=== PATIENT | female | born 1990 | race Caucasian/White ===

== ENCOUNTER → 2016-10-01 | Outpatient (CLI) | payer OTHER ==
[~2016-10-01] MED LIST: DESO5TAB PO; HYDR-5688 PO; IBUP-1050 PO; MULT-506 PO; PRENTAB26 PO; SUMA0.05 INJ; VNTHFA/IN INH; ZNTT/150 PO
--- NOTE | 2016-10-01 08:29 | DIAGNOSTIC IMAGING REPORT ---
GI SERIES W/AIR ROUTINE CLINICAL HISTORY: K21.9 Gastroesophageal reflux disease GERD, chest pain, r/o hiatal hernia. COMPARISON STUDY: None. FLUOROSCOPY TIME: 2.5 minutes. 19 images submitted. FINDINGS: The esophagus is normal in course, caliber, motility. No hiatus hernia. No gastroesophageal reflux. No gastric ulcerations. The duodenal bulb and duodenal C sweep are within normal limits. IMPRESSION: Normal upper GI series. Electronically signed by: Jimmy Alonzo M.D. 10/01/2016 8:27 AM Dictated Date/Time: 10/01/2016 8:13 AM
== END | disposition home or self-care (01) ==
LOC: C.RAD 07:45
PROVIDERS: ATTEND Surgery
DX: K21.9 Gastro-esophageal reflux disease without esophagitis (principal)

== ENCOUNTER → 2016-10-29 | Day surgery (SDC) | payer OTHER ==
[2016-10-14 12:59] VITALS: BMI 35.0
[~2016-10-29] VITALS: Ht 167.6 cm; Wt 99.5 kg
[~2016-10-29] MED LIST changes: +BUPIVACAINE/EPINEPHRINE 0.25% 1:200,000 30 ML VIAL ONE; +BUPIVACAINE/EPINEPHRINE 0.5% MPF 1:200,000 30 ML VIAL ONE; +CEFAZOLIN 2000 MG/60 ML D5W IV SCH; +DEXAMETHASONE SOD INJ 4 MG/ML VIAL ONE; +DiphenhydrAMINE HCL 50 MG/ML VIAL IV PRN; +FENTANYL CITRATE INJ 50 MCG/1 ML 2 ML VIAL IV PRN; +FENTANYL CITRATE INJ 50 MCG/1 ML 2 ML VIAL ONE; +GLYCOPYRROLATE INJ 0.2 MG/ML VIAL ONE; +HEPARIN SOD 5000 UNIT/0.5 ML CARP SQ SCH; +HYDROCODONE/ACETAMOPHEN 5/325MG TAB PO PRN; +KETOROLAC TROMETHAMINE 30 MG/ML VIAL IV. PRN; +KETOROLAC TROMETHAMINE 30 MG/ML VIAL ONE; +LACTATED RINGER'S 1000ML 1,000 ML IV PRN; +LACTATED RINGER'S 1000ML 1,000 ML IV SCH; +LIDOCAINE HCL 2% 2 ML VIAL (20MG/ML) ONE; +METOCLOPRAMIDE HCL INJ 5 MG/ML 2 ML VIAL IV PRN; +MIDAZOLAM HCL 1 MG/ML 2ML VIAL ONE; +NEOSTIGMINE METHYLSULFATE 5 MG/5 ML SYR ONE; +ONDANSETRON INJ 2 MG/ML 2 ML VIAL IV PRN; +ONDANSETRON INJ 2 MG/ML 2 ML VIAL ONE; -PRENTAB26 PO; +PROPOFOL IV EMULSION 10 MG/ML 20 ML VIAL IV ONE; +ROCURONIUM BROMIDE 10 MG/ML 5 ML VIAL ONE; +SCOPOLAMINE 1.5 MG TDSY TD ONE; +SODIUM CHLORIDE 0.9% 1000ML 1,000 ML IV SCH
[2016-10-29 07:15] VITALS: BP 133/72; PULSE 83; TEMP 37.2; O2SAT 97; Ht 167.6 cm; Wt 99.5 kg
[2016-10-29 07:45] LABS: HEMATOCRIT 35.6 % (37-47); MEAN CELL VOLUME 87.9 fL (80-100); MEAN CORPUSCULAR HEMOGLOBIN 30.4 pg (25-34); MEAN PLATELET VOLUME 9.5 fL (7.4-10.4); PLATELET COUNT 317 K/uL (130-400); RED BLOOD COUNT 4.05 M/uL (4.2-5.4); WHITE BLOOD COUNT 6.82 K/uL (4.8-10.8)
[2016-10-29 07:52] LABS: MEAN CORPUSCULAR HGB CONC 34.6 g/dl (32-36)
[2016-10-29 08:00] LABS: PREG INTERNAL NEGATIVE QC NEG CLEAR BACKGROUND; PREG INTERNAL POSITIVE QC POS CONTROL LINE
--- NOTE | 2016-10-29 08:06 | History and Physical ---
History & Physical Date Oct 29, 2016. Chief Complaint pt with epigastric pain and nausea, worse post prandial. HIDA + for biliary dyskinesia History of Present Illness The patient is a 26 year old female with complaints of Additional History Hepatic Disease: No Endocrine Disorder: No Kidney Disease: No Hypertension: Yes (during ) Heart Disease: No Bleeding Tendencies: No Infectious Diseases: No Allergies Coded Allergies: Codeine (Verified Allergy, Unknown, DELIRIUM, 10/29/16) Gluten (Verified Allergy, Unknown, GI SYMPTOMS-GLUTEN INTOLERANT, 10/29/16) Nickel (Unverified Allergy, Unknown, RASH WITH CONTACT WITH NICKEL, 10/29/16 ) Home Medications Scheduled Desogestrel-Ethinyl Estradiol (Pimtrea 0.15-0.02/0.01 mg (13/12)), 1 TAB PO DAILY Ibuprofen (Advil), 600 MG PO PRN Multivitamin (Multivitamin), 1 TAB PO QPM Ranitidine (Zantac), 150 MG PO PRN Sumatriptan Succinate (Zembrace Symtouch), 3 MG INJ PRN Scheduled PRN Albuterol Hfa (Ventolin Hfa), 1-2 PUFFS INH Q4H PRN for RN Physical Examination Skin: warm/dry Eyes: normal inspection, EOMI ENT: normal ENT inspection Head: normocephalic Neck: supple, no adenopathy Respiratory/Chest: no respiratory distress Cardiovascular: regular rate, rhythm Abdomen / GI: normal bowel sounds, non tender Extremities: normal inspection Neurologic/Psych: alert, oriented x 3 Plan of Treatment biliary dyskinesia discussed options/risks. questions answered. ok to proceed with rach obrien
--- NOTE | 2016-10-29 09:15 | [facility] Operative Report ---
Operative Report Operative Date Oct 29, 2016. Pre-Operative Diagnosis biliary dyskinesia Post-Operative Diagnosis same Procedure(s) Performed lap camille Steel Rod Buster Surgeon(s) sowcik,pac Findings normal appearing anatomy Specimens gallbladder Anesthesia get Complication(s) None Disposition Recovery Room / PACU I attest to the content of the Intraoperative Record and any orders documented therein. Any exceptions are noted below.
--- NOTE | 2016-10-29 09:20 | Discharge Instructions ---
Discharge Instructions Date of Service Oct 29, 2016. Admission Reason for Admission: Biliary Dyskinesia Discharge Discharge Diagnosis / Problem: biliary dyskinesia Discharge Goals Goal(s): Decrease discomfort, Prevent Disease Progression Activity Recommendations Activity Limitations: as noted below Lifting Limitations: no more than 10 pounds Exercise/Sports Limitations: until after follow-up appointment May Resume Sexual Activity: after follow-up appointment Shower/Bathe: tomorrow . Instructions / Follow-Up Instructions / Follow-Up f/u dr. vargas in 1-2 weeks. call [phone] if any problems or questions. Current Hospital Diet Patient's current hospital diet: Discharge Diet Recommended Diet: Regular Diet Procedures Procedures Performed: lap camille Pending Studies Studies pending at discharge: yes List of pending studies: path report Medical Emergencies . Who to Call and When: Medical Emergencies: If at any time you feel your situation is an emergency, please call [phone] immediately. . Non-Emergent Contact Non-Emergency issues call your: Primary Care Provider, Surgeon Call Non-Emergent contact if: temperature is above 101, wound has increased drainage, wound has increased redness, wound has increased pain . "Provider Documentation" section prepared by Brian Vargas. VTE Core Measure Inpt VTE Proph given/why not?: SCD's
--- NOTE | 2016-10-29 10:10 | Anesthesiology Progress Note ---
Anesthesia Post Op Note Date & Time Oct 29, 2016 at 10:07 Vital Signs Pain Intensity: 0 Vital Signs Past 12 Hours Date Time Temp Pulse Resp B/P Pulse Ox O2 Delivery O2 Flow Rate FiO2 10/29/16 09:50 36.8 71 16 121/78 99 Nasal Cannula 3 10/29/16 09:40 56 18 120/76 99 Nasal Cannula 3 10/29/16 09:30 60 18 127/79 99 Nasal Cannula 3 10/29/16 09:20 79 16 127/89 99 Mask 10 10/29/16 09:16 37.0 92 16 137/88 99 Mask 10 10/29/16 07:15 37.2 83 16 133/72 97 Room Air Notes Mental Status: alert / awake / arousable, participated in evaluation Pt Amnestic to Procedure: Yes Nausea / Vomiting: adequately controlled Pain: adequately controlled Airway Patency, RR, SpO2: stable & adequate BP & HR: stable & adequate Hydration State: stable & adequate Anesthetic Complications: no major complications apparent Pt had some nausea in PACU which is now resolved. I ordered a scopolamine patch to be placed on her to try to prevent the nausea from recurring when she's at home.
[2016-10-29 10:14] VITALS: BP 111/57; PULSE 62; TEMP 36.4; O2SAT 96
[2016-10-29 10:32] VITALS: BP 84/50; PULSE 65; O2SAT 95
[2016-10-29 11:00] VITALS: BP 99/61; PULSE 64; TEMP 36.1; O2SAT 96
[2016-10-29 12:03] VITALS: BP 107/69; PULSE 88; TEMP 36.7; O2SAT 98
[2016-10-29 12:51] VITALS: BP 98/60; PULSE 77; TEMP 36.7; O2SAT 97
--- NOTE | 2016-10-30 03:51 | OPERATIVE REPORT ---
DATE OF OPERATION: 10/29/2016 PREOPERATIVE DIAGNOSIS: Biliary dyskinesia. POSTOPERATIVE DIAGNOSIS: Same. PROCEDURE: Laparoscopic cholecystectomy. SURGEON: Dr. Vargas. DOSIMETRIST: Michelle Harris PA-C ESTIMATED BLOOD LOSS: 10 mL. COMPLICATIONS: No immediate. ANESTHESIA: General. CONDITION: The patient tolerated the procedure well. OPERATIVE NOTE: After informed consent was obtained, the patient was taken to the operating suite and placed in the supine position. After successful intubation, the abdomen was sterilely prepped and draped in usual fashion. A periumbilical incision made with an 11 blade scalpel and carried down through the soft tissue using electrocautery. The anterior rectus fascia was opened using electrocautery and two #0 Vicryl stay sutures were placed. Peritoneum was elevated with hemostats and incised under direct vision. Finger sweep was performed. A 12 mm Annamaria trocar was placed. The abdomen was insufflated to 18 mmHg. Laparoscope was inserted and the abdomen examined 360 degrees. A subxiphoid 5-mm port and 2 right upper quadrant 5 mm ports were placed under direct vision. The patient was placed in reverse Trendelenburg position and slightly airplaned to the left. The gallbladder was grasped and elevated superiorly and laterally. [place] dissector was used to take down adhesions around the neck of the gallbladder. We did skeletonize the cystic duct without any difficulty, clipped it twice proximally and once distally and transected it using laparoscopic scissors. In similar fashion, I was able to identify the cystic artery. It was skeletonized, clipped and divided as well. Electrocautery was used to remove the gallbladder from the gallbladder fossa. A small hole was made in it during this process, releasing a small amount of bile which was immediately suctioned and irrigated. Once we removed the gallbladder in its entirety, it was placed into an EndoCatch bag. Any small bleeding points in the gallbladder fossa were controlled using electrocautery. We thoroughly irrigated the right upper quadrant. We looked in the pelvis and left upper quadrant and all of the bile had been cleaned out. No other gross abnormalities were identified. The gallbladder was removed from the camera port site and all the trocars were subsequently removed. The abdomen was desufflated. The fascia of the camera port was closed using 0 Vicryl in a [id number] fashion. All the wounds were irrigated and closed using 4-0 Monocryl. Marcaine was injected around them for postoperative analgesia and skin glue used as a dressing. The patient was awakened, extubated, and transferred to recovery in stable condition. I attest to the content of the Intraoperative Record and any orders documented therein. Any exceptio ns are noted below.
== END | disposition home or self-care (01) ==
LOC: C.ACU 06:53
PROVIDERS: ATTEND Surgery
DX: K82.8 Other specified diseases of gallbladder (principal); R10.13 Epigastric pain; R11.0 Nausea

== ENCOUNTER → 2017-02-12 | Outpatient (CLI) | payer OTHER ==
[~2017-02-12] MED LIST changes: -BUPIVACAINE/EPINEPHRINE 0.25% 1:200,000 30 ML VIAL ONE; -BUPIVACAINE/EPINEPHRINE 0.5% MPF 1:200,000 30 ML VIAL ONE; -CEFAZOLIN 2000 MG/60 ML D5W IV SCH; -DEXAMETHASONE SOD INJ 4 MG/ML VIAL ONE; -DiphenhydrAMINE HCL 50 MG/ML VIAL IV PRN; -FENTANYL CITRATE INJ 50 MCG/1 ML 2 ML VIAL IV PRN; -FENTANYL CITRATE INJ 50 MCG/1 ML 2 ML VIAL ONE; -GLYCOPYRROLATE INJ 0.2 MG/ML VIAL ONE; -HEPARIN SOD 5000 UNIT/0.5 ML CARP SQ SCH; -HYDROCODONE/ACETAMOPHEN 5/325MG TAB PO PRN; -KETOROLAC TROMETHAMINE 30 MG/ML VIAL IV. PRN; -KETOROLAC TROMETHAMINE 30 MG/ML VIAL ONE; -LACTATED RINGER'S 1000ML 1,000 ML IV PRN; -LACTATED RINGER'S 1000ML 1,000 ML IV SCH; -LIDOCAINE HCL 2% 2 ML VIAL (20MG/ML) ONE; -METOCLOPRAMIDE HCL INJ 5 MG/ML 2 ML VIAL IV PRN; -MIDAZOLAM HCL 1 MG/ML 2ML VIAL ONE; -NEOSTIGMINE METHYLSULFATE 5 MG/5 ML SYR ONE; -ONDANSETRON INJ 2 MG/ML 2 ML VIAL IV PRN; -ONDANSETRON INJ 2 MG/ML 2 ML VIAL ONE; -PROPOFOL IV EMULSION 10 MG/ML 20 ML VIAL IV ONE; -ROCURONIUM BROMIDE 10 MG/ML 5 ML VIAL ONE; -SCOPOLAMINE 1.5 MG TDSY TD ONE; -SODIUM CHLORIDE 0.9% 1000ML 1,000 ML IV SCH
[2017-02-12 15:17] LABS: URINE APPEARANCE CLEAR (CLEAR); URINE BILIRUBIN NEG (NEG); URINE COLOR YELLOW; URINE NITRITE NEG (NEG); URINE PH 6.5 (4.5-7.5); URINE SPECIFIC GRAVITY 1.011 (1.000-1.030); UROBILINOGEN NEG (NEG)
[2017-02-12 15:19] LABS: MANUAL MICROSCOPIC REQUIRED? NO; REVIEW REQ? NO
[2017-02-16 02:32] LABS: CHLAMYDIA TRACH RNA*** NOT DETECTED (NOT DETECTED); GC (NEIS GONORRHOEAE)RNA** NOT DETECTED (NOT DETECTED)
== END | disposition home or self-care (01) ==
LOC: C.LABSPEC 13:49
PROVIDERS: ATTEND Obstetrics & Gynecology
DX: Z34.81 Encounter for supervision of other normal pregnancy, first trimester (principal)

== ENCOUNTER → 2017-02-12 | Outpatient (CLI) | payer OTHER ==
[2017-02-12 14:35] LABS: BASO % 0.2 %; BASO ABS # 0.02 K/uL (0-0.2); COMPLETE YES; EOS % 0.4 %; HEMATOCRIT 39.2 % (37-47); IG% 0.3 %; LYMPH % 15.1 %; MEAN CELL VOLUME 88.5 fL (80-100); MEAN CORPUSCULAR HEMOGLOBIN 29.3 pg (25-34); MEAN CORPUSCULAR HGB CONC 33.2 g/dl (32-36); MEAN PLATELET VOLUME 9.5 fL (7.4-10.4); MONO % 5.9 %; NEUT % 78.1 %; PLATELET COUNT 367 K/uL (130-400); RED BLOOD COUNT 4.43 M/uL (4.2-5.4); WHITE BLOOD COUNT 11.24 K/uL (4.8-10.8)
== END | disposition home or self-care (01) ==
LOC: C.LAB1850 12:35
PROVIDERS: ATTEND Obstetrics & Gynecology
DX: Z34.81 Encounter for supervision of other normal pregnancy, first trimester (principal)

== ENCOUNTER → 2017-02-12 | Outpatient (CLI) | payer OTHER | END | disposition home or self-care (01) | LOC: C.PAPS 08:28 | PROVIDERS: ATTEND Obstetrics & Gynecology | DX: Z12.4 Encounter for screening for malignant neoplasm of cervix (principal) ==

== ENCOUNTER → 2017-04-12 | Outpatient (CLI) | payer OTHER ==
[2017-04-12 17:07] LABS: GTGD 50 Grams
== END | disposition home or self-care (01) ==
LOC: C.LAB1850 14:36
PROVIDERS: ATTEND Obstetrics & Gynecology
DX: Z34.81 Encounter for supervision of other normal pregnancy, first trimester (principal); L65.9 Nonscarring hair loss, unspecified

== ENCOUNTER → 2017-07-13 | Outpatient (CLI) | payer OTHER ==
[~2017-07-13] MED LIST changes: -HYDR-5688 PO
[2017-07-13 17:21] LABS: HEMATOCRIT 34.5 % (37-47)
[2017-07-13 18:05] LABS: URINE APPEARANCE CLEAR (CLEAR); URINE BILIRUBIN NEG (NEG); URINE COLOR YELLOW; URINE EPITHELIAL CELL AUTO >30 /lpf (0-5); URINE NITRITE NEG (NEG); UROBILINOGEN NEG (NEG)
[2017-07-13 18:28] LABS: MANUAL MICROSCOPIC REQUIRED? NO; REVIEW REQ? NO
[2017-07-13 19:04] LABS: GTGD 50 Grams
== END | disposition home or self-care (01) ==
LOC: C.LAB1850 16:13
PROVIDERS: ATTEND Obstetrics & Gynecology
DX: Z34.83 Encounter for supervision of other normal pregnancy, third trimester (principal)

== ENCOUNTER → 2017-07-27 | Outpatient (CLI) | payer OTHER ==
[~2017-07-27] MED LIST changes: +OSEL75CA12 PO; +RANI150T85 PO; -ZNTT/150 PO
== END | disposition home or self-care (01) ==
LOC: C.LAB1850 08:34
PROVIDERS: ATTEND Obstetrics & Gynecology
DX: Z34.83 Encounter for supervision of other normal pregnancy, third trimester (principal)

== ENCOUNTER 2017-09-02 18:33 | Outpatient (CLI) | payer OTHER ==
[~2017-09-02] VITALS: Ht 167.6 cm; Wt 115.0 kg
[~2017-09-02 18:33] MED LIST changes: -OSEL75CA12 PO; -RANI150T85 PO; +ZNTT/150 PO
[2017-09-02] MEDS ORDERED: ACETAMINOPHEN 325 MG TAB PO PRN (19:15)
--- NOTE | 2017-09-02 20:35 | DIAGNOSTIC IMAGING REPORT ---
R VENOUS DOPP LOWER EXT UNILAT CLINICAL HISTORY: 27 years-old Female presenting with right calf pain and swelling, . TECHNIQUE: Real-time grayscale and color and spectral Doppler ultrasound imaging of the veins of the right lower extremity was performed. Compression and augmentation were also utilized. COMPARISON: None. FINDINGS: Right: Common femoral vein: Patent. Greater saphenous vein: Patent. Deep femoral vein: Patent. Femoral vein: Patent. Popliteal vein: Patent. Calf veins: Patent. Other: None. IMPRESSION: No evidence of deep venous thrombosis. Electronically signed by: Cornelius Cruz M.D. 09/02/2017 8:33 PM Dictated Date/Time: 09/02/2017 8:33 PM
[2017-09-02 21:24] VITALS: Ht 167.6 cm; Wt 115.0 kg
== END 2017-09-02 21:15 | disposition home or self-care (01) ==
LOC: C.LD 18:33 → C.OPB 18:33
PROVIDERS: ATTEND Obstetrics & Gynecology
DX: O99.89 Other specified diseases and conditions complicating pregnancy, childbirth and the puerperium (principal); R51 Headache; R10.2 Pelvic and perineal pain; M79.662 Pain in left lower leg; Z3A.35 35 weeks gestation of pregnancy

== ENCOUNTER → 2017-09-06 | Outpatient (CLI) | payer OTHER ==
[~2017-09-06] MED LIST changes: +OSEL75CA12 PO; +RANI150T85 PO; -ZNTT/150 PO
== END | disposition home or self-care (01) ==
LOC: C.LABSPEC 13:33
PROVIDERS: ATTEND Obstetrics & Gynecology
DX: Z34.83 Encounter for supervision of other normal pregnancy, third trimester (principal)

== ENCOUNTER 2017-09-08 17:52 | Emergency (ER) | payer OTHER ==
[~2017-09-08] VITALS: Ht 170.2 cm; Wt 117.8 kg
[~2017-09-08 17:52] MED LIST changes: -OSEL75CA12 PO
[2017-09-08 17:55] VITALS: Ht 170.2 cm; Wt 117.8 kg
[2017-09-08] MEDS ORDERED: SODIUM CHLORIDE 0.9% 1000ML 1,000 ML IV STA ×2 (18:32→18:52)
[2017-09-08] MEDS ORDERED: ALBUT/IPRATROP 3MG/0.5MG NEB 3 ML VIAL INH STA (18:32)
[2017-09-08] MEDS ORDERED: ACETAMINOPHEN IV 100 ML IV STA (18:32)
[2017-09-08] MEDS ORDERED: OSELTAMIVIR PHOSPHATE 75 MG CAP PO STA (19:02)
--- NOTE | 2017-09-08 19:02 | EMERGENCY ROOM VISIT NOTE ---
ED Visit Note First contact with patient: 18:22 CHIEF COMPLAINT: Flulike symptoms, abdominal cramping HISTORY OF PRESENTING ILLNESS: This is a 27-year-old female who presents to the emergency department with complaint of flulike symptoms that started 3-4 days ago. She states her symptoms started with a cough, headaches and body aches. She was seen at another emergency department yesterday and tested for the flu, which she states came back negative. She states that she had had some nausea and vomiting, they gave her Zofran for this. She is currently 36 weeks , , and followed up with her OB provider yesterday after her ER visit, and they felt that she should have had more workup done including lab work. Patient states that they wanted her to come to the ER again yesterday, but she did not wish to come, so they told her to come in if her symptoms get worse. Today she has developed increased cough and chest congestion, and fevers up to 101, and has also been having abdominal cramping that she describes as contractions. She is states that the contractions are intermittent, not organized or close together. She was not placed on Tamiflu yesterday. She did not get a flu shot this year. She denies neck pain or stiffness, vision changes , chest pain, shortness of breath, diarrhea, constipation, bloody or black stools, urinary symptoms, vaginal bleeding or discharge, or rash. REVIEW OF SYSTEMS: A complete 10 point review of systems was reviewed with the patient with pertinent positives and negatives as per history of present illness. All else were negative. PAST MEDICAL HISTORY: Cholecystectomy SOCIAL HISTORY: Lives at home with her family. She denies tobacco use, alcohol use, recreational drug use. ALLERGIES: Reviewed in chart. PHYSICAL EXAM: CONSTITUTIONAL: Pleasant and cooperative. No acute distress, but appears uncomfortable on exam. Mildly dehydrated, but otherwise well appearing and well nourished. HEENT: Normocephalic, atraumatic. Pupils equal, round and reactive to light, EOMI. TMs normal. Pharynx normal. Tacky mucous membranes. NECK: Supple, full active range of motion without discomfort. No cervical adenopathy. RESPIRATORY: Diminished to auscultation bilaterally with scant expiratory wheezing, crackles, rhonchi or stridor. Equal expansion bilaterally. CARDIOVASCULAR: Tachycardic. Regular rhythm with no murmurs, rubs or gallops. Normal peripheral perfusion. 2+ pitting edema bilateral lower extremities. GASTROINTESTINAL: Gravid abdomen. Palpable movement. Soft, nontender. No rebound tenderness or guarding. Bowel sounds present in all quadrants. MUSCULOSKELETAL: Full range of motion of all joints without discomfort. INTEGUMENTARY: No rash or other significant dermatologic conditions noted. NEUROLOGIC: Alert and oriented X 4 with normal affect. Normal strength and sensation all 4 extremities. No focal neurologic deficits noted. Normal speech. Normal gait observed. ED COURSE AND MEDICAL DECISION MAKING: CC: Patient presenting with complaint of flulike symptoms, cough, fevers, abdominal cramps DIFFERENTIAL DIAGNOSIS: Includes, but not limited to influenza, viral URI, bronchitis, pneumonia, dehydration, [place] contractions, labor, among others. INTERPRETATION OF LABS: No leukocytosis, mild anemia (consistent with baseline) , no significant electrolyte abnormalities, normal renal function, normal liver enzymes and lipase. UA consistent with some dehydration, negative for infection. Influenza POSITIVE for type A. IMAGING: CHEST 2 VIEWS ROUTINE CLINICAL HISTORY: eval PNA pneumonia. Dyspnea. COMPARISON STUDY: No previous studies for comparison. FINDINGS: The bones soft tissues and hemidiaphragms are normal. The cardiomediastinal silhouette is normal. The lungs are clear. The pulmonary vasculature is normal. IMPRESSION: Negative chest. MEDICATION RECONCILIATION: I attest that I have personally reviewed the patient 's current medication list. INITIAL VITAL SIGNS REVIEW: I reviewed the patient's initial vital signs and interpret them as follows: T: Febrile; BP: Normotensive; HR: Tachycardic; RR : Within normal limits; Pulse Ox: Within normal limits on room air. Blood pressure screening: The patient was found to have normal blood pressure on screening and does not require follow-up for repeat blood pressure check. SUMMARY: Patient was evaluated at bedside, history and physical exam performed. Patient is alert and oriented, no acute distress but appears uncomfortable, resting calmly in the stretcher. Patient is noted to be febrile and tachycardic on initial evaluation. She does appear to be moderately dehydrated. Lungs are diminished with few expiratory wheezes heard. I performed a bedside ultrasound to assess the patient's , heart rate of 160 bpm and active movement noted. Orders were placed at bedside for IV fluid bolus for hydration, labs, UA, influenza swab, chest x-ray to evaluate for pneumonia. Patient discussed with Dr. Torres, who agrees with my assessment and plan. Labs and imaging reviewed as above, notable for positive influenza type A. Spoke on the phone with Dr. Burciaga, OB, who agrees with my plans for evaluation of the patient and treating her with IV fluids. She states that if the patient is not having organized contractions at least 7 minutes apart, she does not need to be evaluated on the L&D floor. Patient reassessed multiple times throughout ED stay, she is feeling somewhat better after her treatments. She states that her abdominal cramping has resolved and she no longer feels like she is having contractions. She has defervesced appropriately after Tylenol, and tachycardia is downtrending after IV fluids. She is tolerating oral fluids without difficulty. She states that her headache is also improved. She states that the nebulizer treatments seem to help her coughing and chest tightness. She was provided with an albuterol inhaler and spacer and instructed for continued use at home. Patient was updated on all results and plan for discharge, she was encouraged to follow closely with her primary care provider and OB provider. Rx for Tamiflu was sent to the pharmacy, first dose was given in the ED. Patient was also given strict return precautions should her symptoms worsen, she verbalized understanding. Patient was discharged home in stable condition and ambulatory. Current/Historical Medications Scheduled Desogestrel-Ethinyl Estradiol (Pimtrea 0.15-0.02/0.01 mg (13/12)), 1 TAB PO DAILY Ibuprofen (Advil), 600 MG PO PRN Multivitamin (Multivitamin), 1 TAB PO QPM Oseltamivir (Tamiflu), 75 MG PO BID Ranitidine (Zantac), 150 MG PO PRN Sumatriptan Succinate (Zembrace Symtouch), 3 MG INJ PRN Scheduled PRN Albuterol Hfa (Ventolin Hfa), 1-2 PUFFS INH Q4H PRN for RN Allergies Coded Allergies: Nickel (Verified Allergy, Intermediate, RASH WITH CONTACT WITH NICKEL, 09/02) Gluten (Verified Allergy, Mild, GI SYMPTOMS-GLUTEN INTOLERANT, 09/02/17) Codeine (Verified Adverse Reaction, Mild, DELIRIUM, 09/02/17) Vital Signs Date Time Temp Pulse Resp B/P (MAP) Pulse Ox O2 Delivery O2 Flow Rate FiO2 2/14/18 23:01 37.0 115 20 114/75 97 Room Air 09/08/17 21:30 37.6 102 16 124/72 98 Room Air 09/08/17 19:33 37.9 119 16 121/69 98 Room Air 09/08/17 17:55 38.2 121 20 132/75 98 Room Air Laboratory Results 09/08/17 19:00 Red Blood Count 3.59, Mean Corpuscular Volume 88.6, Mean Corpuscular Hemoglobin 30.9, Mean Corpuscular Hemoglobin Concent 34.9, Mean Platelet Volume 10.0, Neutrophils (%) (Auto) 82.8, Lymphocytes (%) (Auto) 7.2, Monocytes (%) (Auto) 9.6, Eosinophils (%) (Auto) 0.1, Basophils (%) (Auto) 0.1, Neutrophils # (Auto) 7.46, Lymphocytes # (Auto) 0.65, Monocytes # (Auto) 0.87, Eosinophils # (Auto) 0.01, Basophils # (Auto) 0.01 09/08/17 19:00 Test 09/08/17 19:00 09/08/17 19:21 09/08/17 20:32 White Blood Count 9.02 K/uL (4.8-10.8) Red Blood Count 3.59 M/uL (4.2-5.4) Hemoglobin 11.1 g/dL (12.0-16.0) Hematocrit 31.8 % (37-47) Mean Corpuscular Volume 88.6 fL (80-100) Mean Corpuscular Hemoglobin 30.9 pg (25-34) Mean Corpuscular Hemoglobin Concent 34.9 g/dl (32-36) Platelet Count 216 K/uL (130-400) Mean Platelet Volume 10.0 fL (7.4-10.4) Neutrophils (%) (Auto) 82.8 % Lymphocytes (%) (Auto) 7.2 % Monocytes (%) (Auto) 9.6 % Eosinophils (%) (Auto) 0.1 % Basophils (%) (Auto) 0.1 % Neutrophils # (Auto) 7.46 K/uL (1.4-6.5) Lymphocytes # (Auto) 0.65 K/uL (1.2-3.4) Monocytes # (Auto) 0.87 K/uL (0.11-0.59) Eosinophils # (Auto) 0.01 K/uL (0-0.5) Basophils # (Auto) 0.01 K/uL (0-0.2) RDW Standard Deviation 43.2 fL (36.4-46.3) RDW Coefficient of Variation 13.4 % (11.5-14.5) Immature Granulocyte % (Auto) 0.2 % Immature Granulocyte # (Auto) 0.02 K/uL (0.00-0.02) Red Blood Cell Morphology Unremarkable Anion Gap 9.0 mmol/L (3-11) Est Creatinine Clear Calc Drug Dose 173.7 ml/min Estimated GFR () 140.7 Estimated GFR (Non- 121.4 BUN/Creatinine Ratio 8.0 (10-20) Calcium Level 7.9 mg/dl (8.5-10.1) Total Bilirubin 0.3 mg/dl (0.2-1) Direct Bilirubin < 0.1 mg/dl (0-0.2) Aspartate Amino Transf (AST/SGOT) 16 U/L (15-37) Alanine Aminotransferase (ALT/SGPT) 16 U/L (12-78) Alkaline Phosphatase 127 U/L (45-117) Total Protein 6.6 gm/dl (6.4-8.2) Albumin 2.5 gm/dl (3.4-5.0) Lipase 98 U/L (73-393) Influenza Type A (RT-PCR) POS for Influ A (NEG) Influenza Type B (RT-PCR) Neg for Influ B (NEG) Urine Color YELLOW Urine Appearance CLOUDY (CLEAR) Urine pH 7.0 (4.5-7.5) Urine Specific [place] 1.017 (1.000-1.030) Urine Protein NEG (NEG) Urine Glucose (UA) NEG (NEG) Urine Ketones 2+ (NEG) Urine Occult Blood NEG (NEG) Urine Nitrite NEG (NEG) Urine Bilirubin NEG (NEG) Urine Urobilinogen NEG (NEG) Urine Leukocyte Esterase NEG (NEG) Urine WBC (Auto) 1-5 /hpf (0-5) Urine RBC (Auto) 0-4 /hpf (0-4) Urine Hyaline Casts (Auto) 1-5 /lpf (0-5) Urine Epithelial Cells (Auto) >30 /lpf (0-5) Urine Bacteria (Auto) NEG (NEG) Urine Renal Epithelial Cells /lpf (0-5) Medications Administered Medications (Trade) Dose Ordered Sig/Michelle Route Start Time Stop Time Status Last Admin Dose Admin Albuterol/ Ipratropium (Duoneb) 3 ml NOW STAT INH 09/08/17 18:32 09/08/17 18:37 DC 09/08/17 18:32 3 ML Sodium Chloride 1,000 ml @ 999 mls/hr Q1H1M STAT IV 09/08/17 18:32 09/08/17 19:32 DC 09/08/17 18:32 999 MLS/HR Acetaminophen 100 ml @ 400 mls/hr NOW STAT IV 09/08/17 18:32 09/08/17 18:46 DC 09/08/17 18:32 400 MLS/HR Sodium Chloride 1,000 ml @ 999 mls/hr Q1H1M STAT IV 09/08/17 18:52 09/08/17 19:52 DC 09/08/17 18:52 999 MLS/HR Oseltamivir Phosphate (Tamiflu Cap) 75 mg NOW STAT PO 09/08/17 19:02 09/08/17 19:03 DC 09/08/17 19:02 75 MG Ondansetron HCl (Zofran Inj) 4 mg STK-MED ONCE .ROUTE 09/08/17 20:35 09/08/17 20:36 DC 09/08/17 20:35 4 MG Diphenhydramine HCl (Benadryl Inj) 50 mg NOW STAT IV 09/08/17 20:56 09/08/17 20:59 DC 09/08/17 20:56 50 MG Metoclopramide HCl (Reglan Inj) 10 mg NOW STAT IV 09/08/17 20:56 09/08/17 20:59 DC 09/08/17 20:56 10 MG Albuterol (Ventolin Hfa Inhaler) 2 puffs NOW ONCE INH 09/08/17 22:45 09/08/17 22:46 DC 09/08/17 23:04 2 PUFFS Departure Information Impression Primary Impression: Influenza A Additional Impression: Dehydration during Dispostion Home / Self-Care Condition GOOD Prescriptions Oseltamivir (Tamiflu) 75 Mg Cap 75 MG PO BID for 5 Days, #9 CAP Prov: Lindsay,Marti B., SAIVTA 09/08/17 Referrals No Doctor, Assigned (PCP) Patient Instructions ED Flu, My [facility] Additional Instructions You have been treated in the Emergency Department today for Dehydration. Test results today are POSITIVE for influenza type A. This is most likely the cause of all of your symptoms. Influenza is a type of virus that should run its course and symptoms should be improved after 7-10 days, but may last up to 14 days. You have been prescribed Tamiflu, which is to be taken twice a day for 5 days. This is to help reduce symptoms of influenza. You have as been provided with an albuterol inhaler and spacer, take 2 puffs every 4 hours as needed for cough, wheezing, or chest tightness. For fevers and body aches/headaches, you may take the following over-the- counter medications: - Extra strength Tylenol (500 mg) 1-2 tablets every 6-8 hours as needed. Do not take more than 6 tablets (3000 mg) in 24 hours. It is ESSENTIAL that you maintain adequate hydration with oral fluids! Some suggestions include: - Water is the IDEAL replacement for lost fluids. You should initially sip at the water to help facilitate increased intestinal absorption rate and to decrease the possibility of nausea/vomiting. - Carbohydrate/Electrolyte-Containing Drinks (i.e. Gatorade, Powerade, Pedialyte). All of these are good choices, but it is important to remember that all of these drinks contain a high concentration of sugar. - Popsicles, ice chips, and fruit juices are all other options. - My FAVORITE dehydration remedy is to mix a 1:1 solution of bottled Gatorade with bottled water. This dilution allows for a palatable flavor with added benefit of a reduction in the amount of sugar consumption. As with all Emergency Department visits, you should follow-up with your Primary Care Provider in 2-3 days for reevaluation. Please return to the emergency department for any worsening symptoms, including difficulty breathing, chest pain, coughing up blood, severe dizziness or passing out, confusion, severe headache, or for any concerns regarding her including abdominal pain, contractions or labor pains, vaginal bleeding or discharge of fluid. Problem Qualifiers
[2017-09-08 19:17] LABS: HEMATOCRIT 31.8 % (37-47); HEMOGLOBIN 11.1 g/dL (12.0-16.0); MEAN CELL VOLUME 88.6 fL (80-100); MEAN CORPUSCULAR HEMOGLOBIN 30.9 pg (25-34); MEAN CORPUSCULAR HGB CONC 34.9 g/dl (32-36); PLATELET COUNT 216 K/uL (130-400); RED CELL DISTRIBUTION WIDTH CV 13.4 % (11.5-14.5); RED CELL DISTRIBUTION WIDTH SD 43.2 fL (36.4-46.3); WHITE BLOOD COUNT 9.02 K/uL (4.8-10.8)
[2017-09-08 19:37] LABS: ALBUMIN 2.5 gm/dl (3.4-5.0); ALT/SGPT 16 U/L (12-78); AST/SGOT 16 U/L (15-37); BLOOD UREA NITROGEN 5 mg/dl (7-18); CALCIUM 7.9 mg/dl (8.5-10.1); CARBON DIOXIDE 22 mmol/L (21-32); CREATININE 0.64 mg/dl (0.60-1.20); GLUCOSE 74 mg/dl (70-99); LIPASE 98 U/L (73-393); POTASSIUM 3.5 mmol/L (3.5-5.1); SODIUM 134 mmol/L (136-145)
[2017-09-08 19:39] LABS: ALKALINE PHOSPHATASE 127 U/L (45-117); TOTAL PROTEIN 6.6 gm/dl (6.4-8.2)
[2017-09-08 19:47] LABS: BASO % 0.1 %; BASO ABS # 0.01 K/uL (0-0.2); EOS % 0.1 %; EOS ABS # 0.01 K/uL (0-0.5); IG# 0.02 K/uL (0.00-0.02); LYMPH % 7.2 %; LYMPH ABS # 0.65 K/uL (1.2-3.4); MONO % 9.6 %; MONO ABS # 0.87 K/uL (0.11-0.59); NEUT % 82.8 %; NEUT ABS # 7.46 K/uL (1.4-6.5)
[2017-09-08 20:04] LABS: INFLUENZA A PCR POS for Influ A (NEG); INFLUENZA B PCR Neg for Influ B (NEG)
--- NOTE | 2017-09-08 20:05 | DIAGNOSTIC IMAGING REPORT ---
CHEST 2 VIEWS ROUTINE CLINICAL HISTORY: eval PNA pneumonia. Dyspnea. COMPARISON STUDY: No previous studies for comparison. FINDINGS: The bones soft tissues and hemidiaphragms are normal. The cardiomediastinal silhouette is normal. The lungs are clear. The pulmonary vasculature is normal. IMPRESSION: Negative chest. The above report was generated using voice recognition software. It may contain grammatical, syntax or spelling errors. Electronically signed by: Lawrence Pacheco M.D. 09/08/2017 8:04 PM Dictated Date/Time: 09/08/2017 8:04 PM
[2017-09-08] MEDS ORDERED: ONDANSETRON INJ 2 MG/ML 2 ML VIAL ONE (20:35)
[2017-09-08] MEDS ORDERED: METOCLOPRAMIDE HCL INJ 5 MG/ML 2 ML VIAL IV STA (20:56)
[2017-09-08] MEDS ORDERED: DiphenhydrAMINE HCL 50 MG/ML VIAL IV STA (20:56)
[2017-09-08] MEDS ORDERED: ONDANSETRON INJ 2 MG/ML 2 ML VIAL IV STA (21:00)
[2017-09-08] MEDS ORDERED: OSEL75CA12 PO (22:32)
[2017-09-08] MEDS ORDERED: ALBUTEROL HFA 8 GM INHALER INH ONE (22:45)
[2017-09-08 23:01] VITALS: BP 114/75; PULSE 115; TEMP 37; O2SAT 97
== END 2017-09-08 23:15 | disposition home or self-care (01) ==
LOC: C.EDB 17:53
DX: O98.513 Other viral diseases complicating pregnancy, third trimester (principal); O99.283 Endocrine, nutritional and metabolic diseases complicating pregnancy, third trimester; J10.1 Influenza due to other identified influenza virus with other respiratory manifestations; E86.0 Dehydration; Z3A.36 36 weeks gestation of pregnancy; Z90.49 Acquired absence of other specified parts of digestive tract; Z79.899 Other long term (current) drug therapy; Z88.5 Allergy status to narcotic agent

== ENCOUNTER 2017-09-19 00:47 | Outpatient (CLI) | payer OTHER ==
[~2017-09-19] VITALS: Ht 167.6 cm; Wt 115.5 kg
[2017-09-19 01:29] VITALS: Ht 167.6 cm; Wt 115.5 kg
== END 2017-09-19 03:52 | disposition home or self-care (01) ==
LOC: C.OPB 00:47 → C.LD 00:47 → C.OPB 03:52
PROVIDERS: ATTEND Obstetrics & Gynecology
DX: O62.9 Abnormality of forces of labor, unspecified (principal); Z3A.00 Weeks of gestation of pregnancy not specified

== ENCOUNTER 2017-09-27 06:32 | Inpatient (IN) | payer OTHER ==
[~2017-09-27] VITALS: Ht 167.6 cm; Wt 115.0 kg
[2017-09-27] MEDS ORDERED: LACTATED RINGER'S 1000ML 1,000 ML IV SCH (06:55)
[2017-09-27] MEDS ORDERED: LACTATED RINGER'S 1000ML 1,000 ML IV PRN (06:55)
[2017-09-27 07:23] LABS: HEMATOCRIT 34.5 % (37-47); HEMOGLOBIN 11.9 g/dL (12.0-16.0); MEAN CELL VOLUME 88.7 fL (80-100); MEAN CORPUSCULAR HEMOGLOBIN 30.6 pg (25-34); MEAN CORPUSCULAR HGB CONC 34.5 g/dl (32-36); MEAN PLATELET VOLUME 10.1 fL (7.4-10.4); PLATELET COUNT 242 K/uL (130-400); RED CELL DISTRIBUTION WIDTH CV 13.9 % (11.5-14.5); RED CELL DISTRIBUTION WIDTH SD 44.8 fL (36.4-46.3); WHITE BLOOD COUNT 8.49 K/uL (4.8-10.8)
[2017-09-27] MEDS ORDERED: EpHEDrine SULFATE INJ 50 MG/ML AMP ONE (08:41)
[2017-09-27] MEDS ORDERED: BUPIVACAINE 0.25% 30 ML VIAL ONE (08:41)
[2017-09-27] MEDS ORDERED: FENTANYL CITRATE INJ 50 MCG/1 ML 2 ML VIAL ONE (08:42)
[2017-09-27] MEDS ORDERED: FENTANYL 2MCG/ML ROPIV 1.25MG/ML 100ML BAG EPI ONE (08:43)
[2017-09-27] MEDS ORDERED: NALOXONE HCL INJ 1 MG in SODIUM CHLORIDE 0.9% 1000ML 1,000 ML IV PRN (09:12)
[2017-09-27] MEDS ORDERED: LACTATED RINGER'S 1000ML 500 ML IV PRN (09:12)
[2017-09-27] MEDS ORDERED: EpHEDrine SULFATE INJ 50 MG/ML AMP IV PRN (09:15)
[2017-09-27] MEDS ORDERED: DiphenhydrAMINE HCL 50 MG/ML VIAL IV PRN (09:15)
[2017-09-27] MEDS ORDERED: NALBUPHINE HCL INJ 10 MG/ML AMP IV PRN (09:15)
[2017-09-27] MEDS ORDERED: FENTANYL 2MCG/ML ROPIV 1.25MG/ML 100ML BAG EPI PRN (09:15)
[2017-09-27] MEDS ORDERED: NALOXONE HCL INJ 0.4 MG/1 ML VIAL/CARP IV PRN (09:15)
[2017-09-27] MEDS ORDERED: ONDANSETRON INJ 2 MG/ML 2 ML VIAL IV PRN (09:15)
[2017-09-27] MEDS ORDERED: OXYTOCIN 30 UNITS/500ML NSS IV ONE (11:19)
--- NOTE | 2017-09-27 11:58 | [facility] Operative Report ---
Operative Report Operative Date Sep 27, 2017. Pre-Operative Diagnosis at 39 weeks labor Post-Operative Diagnosis same Procedure(s) Performed epidural arom Surgeon Ana Machine Heel Sprayer Surgeon(s) Ellie Estimated Blood Loss 300cc Findings Viable male in toni, nuchal cord clamped and cut on the perineum, apgars 8 /10, weight pending, no tear. Fluids n/a Specimens placenta Drains None Anesthesia Type L&D Only EPID Exist Complication(s) none Disposition yes L&D Description of Procedure Patient presented to labor and delivery in early active labor. She progressed to 4.5cm and an epidural was placed. she then progressed to 9cm and arom for clear fluid. She shortly thereafter felt pressure to push and pushed x3 to deliver a viable male in toni. there was a nuchal cord that could not be reduced and was clamped and cut on the perineum. Rest of the infant then delivered easily. nose and mouth suctioned and infant placed on the maternal abdomen for drying and attention. Cord blood obtained. placenta delivered s/i/ 3vc. cx/s/r/perinuem was intact. apgars 8/10. Hemostasis with dilute pit and massage. ebl--300cc. Mother and baby doing well at the end of the delivery. I attest to the content of the Intraoperative Record and any orders documented therein. Any exceptions are noted below.
[2017-09-27] MEDS ORDERED: BENZOCAINE 20% AER SPR 82.5 GM CAN EXT PRN (12:00)
[2017-09-27] MEDS ORDERED: LANOLIN OINT EXT PRN (12:00)
[2017-09-27] MEDS ORDERED: OXYTOCIN 30 UNITS/500ML NSS IV PRN (12:00)
[2017-09-27] MEDS ORDERED: DIPHTHERIA/TETANUS/PERTUSSIS 0.5 ML SYR/VIAL IM. ONE (12:00)
[2017-09-27] MEDS ORDERED: ACETAMINOPHEN 325 MG TAB PO PRN (12:00)
[2017-09-27] MEDS ORDERED: HYDROCORTISONE ACETATE 25 MG SUPP PR PRN (12:00)
[2017-09-27] MEDS ORDERED: SUPERCREAM 0.870 % 15GM JAR EXT PRN (12:00)
[2017-09-27] MEDS ORDERED: OXYCODONE/ACETAMINOPHEN 5-325 TAB PO PRN (12:00)
--- NOTE | 2017-09-27 12:34 | Anesthesia Procedure Note ---
Anesthesia Epidural Removal Nt Date & Time Sep 27, 2017 at 12:34 Vital Signs Pain Intensity: 0.0 Notes Mental Status: alert / awake / arousable, participated in evaluation Nausea / Vomiting: adequately controlled Pain: adequately controlled Airway Patency, RR, SpO2: stable & adequate BP & HR: stable & adequate Hydration State: stable & adequate Neuraxial Anesthesia: was administered Anesthetic Complications: no major complications apparent, pt satisfied with anesthetic care Epidural: removed without complications, with tip intact
[2017-09-27] MEDS: IBUPROFEN 600 MG TAB PO PRN ×3 (13:53→22:03)
[2017-09-27 14:30] VITALS: BP 135/89; PULSE 101; TEMP 36.7; O2SAT 98
[2017-09-27 15:09] VITALS: Ht 167.6 cm; Wt 115.0 kg
--- NOTE | 2017-09-27 16:52 | Discharge Instructions ---
Discharge Instructions Date of Service Sep 27, 2017. Admission Reason for Admission: Normal Labor Discharge Discharge Diagnosis / Problem: S/P Discharge Goals Goal(s): Routine recovery after delivery Medications Continue Dispensed Medications: supercream, dermaplast, tucks, lansinoh Activity Recommendations Activity Limitations: per Instructions/Follow-up section . Instructions / Follow-Up Instructions / Follow-Up ACTIVITY RECOMMENDATIONS: * Gradual return to full activity over the next 2-3 weeks. * No lifting - nothing heavier than baby over the next 2-3 weeks. * Do not engage in vigorous exercise, sexual activity or sports until cleared by your physician. * Do not drive or operate any motorized equipment until cleared by your physician. * You may shower/bathe daily. MEDICATIONS: For discomfort or pain, you may use Acetaminophen (Tylenol), Ibuprofen (Advil), or Naproxen (Aleve) following the package directions. For constipation you may use Colace following the package directions. BREAST CARE: If you are not breast feeding: * Wear a supportive bra 24 hours a day for one to two weeks. * Avoid stimulating your breasts and nipples as much as possible during the first few weeks after delivery. * When taking a shower, have the warm water hit your back, not breasts. * When your breasts feel full, apply ice packs. Usually three to four times a day helps ease the discomfort. * Take a mild pain medication (Tylenol / Motrin) when you are uncomfortable. If breast feeding: * Use breast milk to lubricate nipples. Lansinoh cream may be used for sore nipples. You do not need to remove cream prior to breast feeding. If using a different brand of cream, check the label for directions regarding removal of cream prior to nursing. * Wear a supportive bra. * If having problems with breasts or breast feeding, call a system sales consultant or your health care provider. EPISIOTOMY CARE: After delivery, if you have an episiotomy (stitches), the following steps will ease discomfort and aid healing. * For the first 24 hours after delivery, place ice packs next to your episiotomy to help reduce swelling. * After the first 24 hour-period, sitz baths, either portable or in the tub, are suggested. A shower with a shower arm sprayed over the episiotomy may be comforting. * So care should be done after each voiding and bowel movement. Squirt warm water from a plastic bottle over the perineum (region of the body between the anus and urinary opening) and pat dry. * Use Dermoplast to ease discomfort. Shake container. [place] directly over the episiotomy. Place a Tucks on a clean sanitary pad next to your episiotomy. SPECIAL CARE INSTRUCTIONS: When you are discharged from the hospital, it is important for you to follow the instructions listed below: * During the first week at home, you should be able to care for yourself and your baby. In addition, the usual light household activities are encouraged. * Limit your activities to the way you feel. Do not try to clean the house or move furniture. Be sensible. * If you actively engage in sports and have done so up until the time of your delivery, you may resume these activities as soon as you feel able. This may take up to one month or even longer. Use good judgment. * Continue to take your vitamins for at least six weeks after the of your baby. * Your diet need not be limited unless you were on a special diet before your delivery. Breast-feeding mothers need around 2500 calories per day and at least 64-80 ounces of fluid per day (8 to 10 glasses). * You should eat foods from the four major food groups. Crash diets or fad diets are to be avoided. Eating lean meats, fresh fruits and vegetables, low-fat dairy products, high fiber foods and a regular exercise program, will help you get back to your pre- weight without putting your health at risk. * Constipation is sometimes a problem after delivery. Take a mild laxative as needed. If breast feeding, Milk of Magnesia is acceptable to use. You may use a suppository or Fleets enema if no episiotomy. * A daily shower or tub bath is suggested. Be sure to thoroughly and gently dry the perineum. * A bloody vaginal discharge will usually continue until around four weeks post . A small amount of bleeding may continue for as long as six weeks. Vaginal discharge changes from the bright red bleeding after delivery to pink then brownish and finally yellowish-pink before becoming white and disappearing. * Bleeding may increase with activity. Your first period may come in 4-8 weeks. If you are breast feeding, your period may be delayed even longer. * [place] (sex) can begin whenever both you and your partner feel comfortable and do not have any form of genital infection. It is recommended that you wait at least six weeks for internal and external healing to occur. If you have questions, please talk to your health care practitioner. A condom should be used to prevent infection and . * Foreplay, gentle intercourse and lubrication is very important the first several times to prevent pain. A water-based lubricant such as K-Y jelly or Astroglide may be used. * If you have RH negative blood and your baby is RH positive, you will receive RHOGAM by injection prior to discharge. The nurse will give you a card to keep with you that has the date and place that you received RHOGAM after delivery. * During your care, you had a Rubella screen done to check for the presence of rubella antibodies in your blood. If your test was negative, you will receive a Rubella vaccine prior to discharge. This vaccine may cause a fever, soreness at the injection site and flu-like symptoms. If these symptoms persist, notify your health care practitioner. is not advised for one month after a Rubella vaccine. * Verbalizes understanding of car seat law as reviewed with patient nursing. * Car Seat hand-out given and reviewed with patient by nursing. * Shaken baby information reviewed with patient by nursing. Call you doctor if: * Heavy bleeding (saturating several pads an hour) or passing clots the size of your fist. * A fever >101 degrees F (38.3 degrees C) on two occasions four hours apart and /or chills. * Unusual pain in the pelvic or vaginal areas. * "Baby Blues" lasting longer than two weeks. If you have any questions or concerns, call your health care practitioner at . FOLLOW UP VISIT: * Please call the office at to schedule a 6 week examination. It is important you keep this appointment. It is important for you to make arrangements for either yearly or twice yearly check-ups thereafter. Current Hospital Diet Patient's current hospital diet: Regular OB Diet, Gluten Free Diet Discharge Diet Recommended Diet: Gluten Free Diet, Regular OB Diet Procedures Procedures Performed: epidural arom Pending Studies Studies pending at discharge: no Medical Emergencies . Who to Call and When: Medical Emergencies: If at any time you feel your situation is an emergency, please call 911 immediately. . Non-Emergent Contact Non-Emergency issues call your: Binding Cutter . . "Provider Documentation" section prepared by Lori Argueta. .
[2017-09-27 20:10] VITALS: BP 106/70; PULSE 70; TEMP 36.8
[2017-09-27] MEDS: DOCUSATE SODIUM 100 MG CAP PO SCH (20:23)
[2017-09-28 00:40] VITALS: BP 124/84; PULSE 79; TEMP 36.7
[2017-09-28 03:40] VITALS: BP 125/81; PULSE 83; TEMP 36.8
[2017-09-28] MEDS: IBUPROFEN 600 MG TAB PO PRN ×2 (03:54→08:22)
[2017-09-28 07:20] LABS: HEMATOCRIT 33.1 % (37-47); HEMOGLOBIN 11.1 g/dL (12.0-16.0)
--- NOTE | 2017-09-28 07:40 | Progress Note ---
Subjective Sep 28, 2017. Subjective conversation w/ patient, physical exam, chart review Ambulation: ambulating normally Voiding: no voiding problems Passing Gas: Yes Diet Tolerance: Regular Diet Lochia: Small Feeding Type: Breast Feeding Pain: Reports some cramping during especially, no other pain Comment: Patient seen and examined at bedside, no acute events overnight Review of Systems Constitutional: No fever, No chills, No sweats, No weight loss, No weakness, No fatigue, No problem reported Respiratory: No cough, No sputum, No wheezing, No shortness of breath, No dyspnea on exertion, No dyspnea at rest, No hemoptysis, No problem reported Cardiac: + edema, No chest pain, No orthopnea, No PND, No claudication, No palpitations, No problem reported Breast: No breast lump, No change in shape, No nipple discharge, No breast pain , No problem reported Abdomen: No pain, No nausea, No vomiting, No diarrhea, No constipation, No GI bleeding, No problem reported Female : No see HPI, No dysuria, No urinary frequency, No hematuria, No incontinence, No abnormal vaginal bleeding, No vaginal discharge, No problem reported Denies headaches or calf pain. Objective Vital Signs Date Time Temp Pulse Resp B/P (MAP) Pulse Ox O2 Delivery O2 Flow Rate FiO2 09/28/17 03:40 36.8 83 16 125/81 (96) Room Air 09/28/17 00:40 Room Air 09/28/17 00:40 36.7 79 16 124/84 (97) Room Air 09/27/17 20:10 36.8 70 18 106/70 (82) Room Air 09/27/17 14:30 98 Room Air 09/27/17 14:30 36.7 101 18 135/89 (104) 98 Room Air Physical Exam General Appearance: WELL-APPEARING, WD/WN, NO APPARENT DISTRESS Respiratory/Chest: chest non-tender, lungs clear, normal breath sounds, no respiratory distress, no accessory muscle use Cardiovascular: regular rate, rhythm, no gallop, no JVD, no murmur Abdomen: normal bowel sounds, non tender, soft Fundus: Firm, Relation to Umbilicus (1 cm below) Extremities: normal range of motion, non-tender, normal inspection, no calf tenderness, + pedal edema (1+) Laboratory Results Last 24 Hours Test 09/28/17 06:46 Hemoglobin 11.1 g/dL Hematocrit 33.1 % Medications Current Inpatient Medications Medications (Trade) Dose Ordered Sig/Michelle Route Start Time Stop Time Status Last Admin Dose Admin Oxytocin (Pitocin IV) 30 units UD PRN IV 09/27/17 12:00 10/27/17 11:59 Benzocaine (Dermoplast Aero Spr) 1 appln PRN PRN EXT 09/27/17 12:00 10/27/17 11:59 Cocaine HCl (Supercream 0.870% Cr) BID PRN EXT 09/27/17 12:00 10/11/17 11:59 Hydrocortisone Acetate (Anusol Hc Supp) 25 mg BID PRN HI 09/27/17 12:00 10/27/17 11:59 Lanolin (Lanolin Oint) PRN PRN EXT 09/27/17 12:00 10/27/17 11:59 Prenat Multivit/ [place]hip [place]yer/Iron/Folic Ac ( Vitamin Tab) 1 tab DAILY PO 09/28/17 08:00 10/28/17 07:59 Ibuprofen (Motrin Tab) 600 mg Q4H PRN PO 09/27/17 12:00 10/27/17 11:59 09/28/17 03:54 600 MG Acetaminophen (Tylenol Tab) 650 mg Q6H PRN PO 09/27/17 12:00 10/27/17 11:59 Oxycodone/ Acetaminophen (Percocet 5-325mg Tab) 1 tab Q4H PRN PO 09/27/17 12:00 10/11/17 11:59 Docusate Sodium (coLACE CAP) 100 mg BID PO 09/27/17 20:00 10/27/17 19:59 09/27/17 20:23 100 MG Assessment and Plan Problem List Medical Problems: (1) Dehydration during Status: Acute (2) Influenza A Status: Acute Post- Day#: 1 Continue Routine Care: Vital signs reviewed and WNL Hgb reviewed 11.9--11.1 blood type O neg, GBS neg, rubella immune Pt doing well clinically, Encouraging ambulation, monitoring pain control, Has resumed regular diet, monitor lochia Encourage breast feeding today Discussed possible discharge planning; patient to wait and see how day goes today. Resident Physician Supervision Note: I interviewed and examined the patient. Discussed with Dr. Argueta and agree with findings and plan as documented in the note. Any exceptions or clarifications are listed here: Doing well, routine care. Documented By: Venus Perez Resident Tracking Resident Involvement: Resident Care Provided Care Provided: OB Delivery
[2017-09-28 08:00] VITALS: BP 134/83; PULSE 79; TEMP 36.5; O2SAT 98
[2017-09-28] MEDS ORDERED: PRENATAL VITAMIN TAB PO SCH (08:00)
[2017-09-28] MEDS: DOCUSATE SODIUM 100 MG CAP PO SCH (08:21)
== END 2017-09-28 14:30 | disposition home or self-care (01) | DRG 775 ==
LOC: C.OPB 06:32 → C.LD 06:35 → C.OPB 07:00 → C.OBG 15:38
PROVIDERS: ADMIT Obstetrics & Gynecology; ATTEND Obstetrics & Gynecology
PROC: 10E0XZZ Delivery of Products of Conception, External Approach (ICD-10-PCS; principal; 2017-09-27)
DX: O69.81X0 Labor and delivery complicated by cord around neck, without compression, not applicable or unspecified (principal); Z3A.39 39 weeks gestation of pregnancy; Z37.0 Single live birth

== ENCOUNTER → 2018-03-03 | Outpatient (CLI) | payer OTHER ==
--- NOTE | 2018-03-03 15:12 | MAMMOGRAPHY REPORT ---
ULTRASOUND OF BOTH BREASTS: 03/03/2018 CLINICAL HISTORY: The patient is currently nursing a 5-month-old. She reports right axillary lump for approximately 1 month, and a left axillary lump for approximately 1 week. There is no associated ski n erythema and no significant pain. She denies any recent mastitis or other recent breast/arm infecti ons. She also had a palpable left groin lump with associated erythema for which she is currently on a ntibiotics for. COMPARISON: Comparison is made to exam dated: 05/12/2016 ultrasound - [facility]. Findings: Real-time, high-resolution ultrasound was performed of the bilateral axillary regions at th e site of the palpable lumps pointed out by the patient. At the site of the palpable lump there are irregular hypoechoic masses which are predominantly intradermal/subdermal in location. There are 2 a djacent hypoechoic masses in the right axilla, one of which measures 6 x 5 mm and the other of which measures 6 x 4 mm. Other masses in the right axillary region measure 7 x 15 mm and 8 x 8 x 4 mm. A s imilar appearing hypoechoic intradermal mass is seen within the left axilla at the site of the palpab le lump, measuring 6 x 6 mm. Given the partially intradermal location, the masses are probably benig n and likely represent sebaceous/epidermal inclusion cysts. Given the history of a similar lump in t he left groin, findings may represent hidradenitis suppurativa. IMPRESSION: ACR-BI-RADS CATEGORY 3: PROBABLY BENIGN Numerous similar appearing hypoechoic masses in bilateral axillary regions, which correspond with the palpable lumps pointed out by the patient. The masses are predominantly intradermal/subdermal and a re probably benign and likely represent sebaceous/epidermal inclusion cysts (possibly hidradenitis newton ppurativa as the patient has similar symptoms in the groin region). Recommend follow-up targeted ultr asound in 6-8 weeks to reevaluate. Also recommend conservative management using warm compresses or a nti-inflammatories if needed. The patient was verbally notified of the results. Cassi Hernandes M.D. /:03/03/2018 11:59:44 Product Technology Scientist: RT Claribel(Ricardo)(M), [facility] letter sent: Follow Up Recommended 3 BI-RADS Code: ACR-BI-RADS Category 3: Probably Benign
== END | disposition home or self-care (01) ==
LOC: C.MAMM 11:07
PROVIDERS: ATTEND Obstetrics & Gynecology
DX: R59.0 Localized enlarged lymph nodes (principal); N63.0 Unspecified lump in unspecified breast